=== PATIENT | male | born 1970 | race Caucasian/White ===

== ENCOUNTER 2018-04-21 15:58 | Inpatient (IN) | payer OTHER ==
[2018-04-21 16:59] VITALS: BMI 27.3
--- NOTE | 2018-04-21 17:58 | HP ---
CIWA Score Nausea/Vomitin-No Nausea/No Vomiting Muscle Tremors: 4-Moderate,w/Arms Extend Anxiety: 4-Mod. Anxious/Guarded Agitation: 4-Moderately Restless Paroxysmal Sweats: 4-Forehead w/Sweat Beads Orientation: 0-Oriented Tacttile Disturbances: 0-None Auditory Disturbances: 0-None Visual Disturbances: 0-None Headache: 0-None Present CIWA-Ar Total Score: 16 - Admission Criteria OAS Guidelines: Admission for Medically Managed Detox: Requires at least one of the followin. CIWA greater than 12 2. Seizures within the past 24 hours 3. Delirium tremens within the past 24 hours 4. Hallucinations within the past 24 hours 5. Acute intervention needed for co occurring medical disorder 6. Acute intervention needed for co occurring psychiatric disorder 7. Severe withdrawal that cannot be handled at a lower level of care (continued vomiting, continued diarrhea, abnormal vital signs) requiring intravenous medication and/or fluids 8. Patient presents the following: CIWA greater than 12, Acute intervention needed for co-occurring med or psych disorder Admission Criteria Met: Admission criteria met Admission ROS [facility] Chief Complaint: C/O WITHDRAWAL SX'S SEEKING ASSIST W/ DETOX Allergies/Adverse Reactions: Allergies Allergy/AdvReac Type Severity Reaction Status Date / Time Fish Containing Products Allergy Severe Verified 04/21/18 16:59 fish derived Allergy Severe Verified 04/21/18 16:59 History of Present Illness: 47 Y.O. MALE WITH HX/O ALCOHOL DEPENDENCE HERE FOR DETOX. CLIENT REPORTS HE ATTEMPTED SELF DETOX BUT HAD A WITHDRAWAL SEIZURE. HE WAS SEEN AND TREATED AT [facility] AND RELEASED FROM -04/15/2018 VERIFIED VIA DC PAPERS. HE IS SELF REFERRED. PRESENTS WITH ONGOING WITHDRAWAL, CIWA 16. REPORTS LAST ADMISSION HERE OVER 10 YEARS AGO. HIS LAST DETOX WAS AT [facility] A YEAR AGO. REPORTS LONGEST CLEAN TIME [id number]. DENIES ANY SIGNIFICANT CLEAN TIME SINCE. DENIES SI /HI, AVH, DRUG OVERDOSE. CURRENTLY LIVING WITH FAMILY, UNEMPLOYED, DENIES LEGALS. PMHX- WITHDRAWAL SEIZURES, HYPOGONADISM, PSYCH- ADHD, MDD, ANXIETY MEDS- PROZAC, ADDERALL, KLONOPIN Exam Limitations: No Limitations - Ebola screening Have you traveled outside of the country in the last 21 days: No Have you had contact with anyone from an Ebola affected area: No Have you been sick,other than usual withdrawal symptoms: No Do you have a fever: No - Review of Systems Constitutional: Changes in sleep EENT: reports: No Symptoms Reported Respiratory: reports: No Symptoms reported Cardiac: reports: No Symptoms Reported GI: reports: No Symptoms Reported : reports: No Symptoms Reported Musculoskeletal: reports: No Symptoms Reported Integumentary: reports: Flushing, Sweating Neuro: reports: Seizure (R/T WITHDRAWAL), Tremors (R/T WITHDRAWAL) Endocrine: reports: No Symptoms Reported Hematology: reports: No Symptoms Reported Psychiatric: reports: Anxious, Depressed Other Systems: Reviewed and Negative Patient History - Patient Medical History Hx Anemia: No Hx Asthma: No Hx Chronic Obstructive Pulmonary Disease (COPD): No Hx Cancer: No Hx Cardiac Disorders: No Hx Congestive Heart Failure: No Hx Hypertension: No Hx Hypercholesterolemia: No Hx Pacemaker: No HX Cerebrovascular Accident: No Hx Seizures: Yes (R/T WITHDRAWALS) Hx Dementia: No Hx Diabetes: No Hx Gastrointestinal Disorders: No Hx Liver Disease: No Hx Genitourinary Disorders: No Hx Sexually Transmitted Disorders: No Hx Renal Disease (ESRD): No Hx Thyroid Disease: No Hx Human Immunodeficiency Virus (HIV): No Hx Hepatitis C: No Hx Depression: Yes Hx Suicide Attempt: No Hx Bipolar Disorder: No Hx Schizophrenia: No Other Medical History: ADHD, HYPOGONADISM - Patient Surgical History Past Surgical History: No Hx Neurologic Surgery: No Hx Cataract Extraction: No Hx Cardiac Surgery: No Hx Lung Surgery: No Hx Breast Surgery: No Hx Breast Biopsy: No Hx Abdominal Surgery: No Hx Appendectomy: No Hx Cholecystectomy: No Hx Genitourinary Surgery: No Hx Section: No Hx Orthopedic Surgery: No Anesthesia Reaction: No - PPD History Previous Implant?: Yes Documented Results: Negative w/o proof Implanted On Prior [facility] Admission?: No PPD to be Administered?: Yes - Smoking Cessation Smoking history: Never smoked Have you smoked in the past 12 months: No Cigars Per Day: 0 Hx Chewing Tobacco Use: No Initiated information on smoking cessation: No - Substance & Tx. History Hx Alcohol Use: Yes Hx Substance Use: Yes Substance Use Type: Alcohol, Prescribed (KLONOPINS) Hx Substance Use Treatment: Yes ([facility]) - Substances Abused Alcohol Route: Oral Frequency: Daily Amount used: liquor- 2 pints, beer- 1 six pack Age of first use: 15 Date of Last Use: 04/20/18 Family Disease History - Family Disease History Family History: Denies Admission Physical Exam [facility] - Vital Signs Vital Signs: Vital Signs - 24 hr 04/21/18 16:56 Temperature 97.7 F Pulse Rate 74 Respiratory 18 Rate Blood Pressure 123/82 - Physical General Appearance: Yes: Appropriately Dressed, Mild Distress, Tremorous (FELT) , Sweating, Anxious HEENTM: Yes: EOMI, Normocephalic, Normal Voice, DEREK, Pharynx Normal Respiratory: Yes: Chest Non-Tender, Lungs Clear, Normal Breath Sounds, No Respiratory Distress, No Accessory Muscle Use Neck: Yes: No masses,lesions,Nodules, Supple, Trachea in good position Breast: Yes: Breast Exam Deferred Cardiology: Yes: Regular Rhythm, Regular Rate, S1, S2 Abdominal: Yes: Normal Bowel Sounds, Non Tender, Flat, Soft Genitourinary: Yes: Other (NO C/O OFFERED) Back: Yes: Normal Inspection Musculoskeletal: Yes: full range of Motion, Gait Steady Extremities: Yes: Normal Capillary Refill, Normal Range of Motion, Non-Tender, Tremors (FELT) Neurological: Yes: Fully Oriented, Alert, Motor Strength 5/5 Integumentary: Yes: Warm, Moist, Other (FLUSHED) Lymphatic: Yes: Within Normal Limits - Diagnostic (1) Alcohol dependence with uncomplicated withdrawal Current Visit: Yes Status: Acute (2) History of hypogonadism Current Visit: Yes Status: Chronic (3) ADHD Current Visit: Yes Status: Chronic Qualifiers: Attention deficit-hyperactivity disorder type: unspecified Qualified Code(s ): F90.9 - Attention-deficit hyperactivity disorder, unspecified type (4) MDD (major depressive disorder) Current Visit: Yes Status: Chronic Qualifiers: Major depression recurrence: recurrent Major depression episode severity: unspecified Cleared for Admission [facility] - Detox or Rehab [facility] Level of Care: Medically Managed Detox Regimen/Protocol: Librium Claeared for Rehab Admission: No [facility] Breath Alcohol Content Breath Alcohol Content: 0.030 Urine Drug Screen - Results Drug Screen Negative: Yes
[2018-04-21] MEDS ORDERED: ACETAMINOPHEN 325 MG TABLET (FP) PO PRN (18:10)
[2018-04-21] MEDS ORDERED: hydrOXYzine PAMOATE 50 MG CAPSULE (FP) PO PRN (18:10)
[2018-04-21] MEDS ORDERED: MAGNESIUM HYDROX 2400MG/30ML ORAL SUSPENSION 30 ML CUP PO PRN (18:10)
[2018-04-21] MEDS ORDERED: chlordiazePOXIDE HCL 25 MG CAPSULE PO PRN (18:10)
[2018-04-21] MEDS ORDERED: IBUPROFEN 400 MG TABLET (FP) PO PRN (18:10)
[2018-04-21] MEDS ORDERED: guaiFENesin/D-METHORPHAN HB 10 ML UNIT-DOSE CUPS PO PRN (18:10)
[2018-04-21] MEDS ORDERED: P-EPHED 60MG/TRIPROLIDI 2.5MG TABLET PO PRN (18:10)
[2018-04-21] MEDS ORDERED: MENTHOL/PHENOL 1 EACH UD MM PRN (18:10)
[2018-04-21] MEDS ORDERED: MAGNESIUM CITRATE 300 ML BOTTLE PO PRN (18:10)
[2018-04-21] MEDS ORDERED: MAG HYDROX/AL HYDROX/SIMETH 30 ML UNIT-DOSE CUP PO PRN (18:10)
[2018-04-21] MEDS ORDERED: LOPERAMIDE HCL 2 MG CAPSULE PO PRN (18:10)
[2018-04-21] MEDS: THIAMINE HCL 100 MG TABLET (FP) PO SCH (22:27)
[2018-04-21] MEDS: chlordiazePOXIDE HCL 25 MG CAPSULE PO SCH (22:27)
[2018-04-22] MEDS: chlordiazePOXIDE HCL 25 MG CAPSULE PO SCH ×4 (05:43→23:12)
[2018-04-22] MEDS: PRENATAL VITAMINS W/ FOLIC ACID TABLET (FP) PO SCH (10:30)
[2018-04-22 11:10] LABS: HEMATOCRIT 39.9 % (35.4-49); HEMOGLOBIN 13.3 GM/dL (11.7-16.9); MCH 28.8 pg (25.7-33.7); MCHC 33.4 g/dl (32.0-35.9); MEAN CELL VOLUME 86.4 fl (80-96); MEAN PLT VOLUME 8.1 fl (7.5-11.1); PLATELET COUNT 324 K/MM3 (134-434); RBC 4.62 M/mm3 (4.00-5.60); RDW 13.4 % (11.9-15.9); WHITE BLOOD COUNT 4.6 K/mm3 (4.0-10.0)
[2018-04-22 11:32] LABS: ALBUMIN 2.7 g/dl (3.4-5.0); ALK PHOS 53 U/L (45-117); ANION GAP 5 MMOL/L (8-16); BILIRUBIN,TOTAL 0.2 mg/dL (0.2-1); BLOOD UREA NITROGEN 17 mg/dL (7-18); CALCIUM 8.4 mg/dL (8.5-10.1); CHLORIDE 105 mmol/L (98-107); CO2 29 mmol/L (21-32); GLUCOSE,RANDOM 86 mg/dL (74-106); POTASSIUM 4.3 mmol/L (3.5-5.1); SGOT/AST 12 U/L (15-37); SGPT/ALT 21 U/L (13-61); SODIUM 139 mmol/L (136-145); TOT PROT 5.8 g/dl (6.4-8.2)
--- NOTE | 2018-04-22 12:37 | CONSULT ---
[facility] Psychiatric Consult - Data Date of interview: 04/22/18 Admission source: [facility] Identifying data: Readmission to [facility] for this 47 y/o male seeking detoxification treatment, on , for alcohol dependence. Patient is , no dependents, unemployed, homeless and supported on welfare. Substance Abuse History: Confirmed by patient in this interview. Details in current [facility] report : Smoking history: Never smoked. Have you smoked in the past 12 months: No. Cigars Per Day: 0. Hx Chewing Tobacco Use: No. Initiated information on smoking cessation: No. - Substance & Tx. History. Hx Alcohol Use: Yes. Hx Substance Use: Yes. Substance Use Type: Alcohol, Prescribed ( KLONOPINS). Hx Substance Use Treatment: Yes ([facility]). - Substances Abused. Alcohol. Route: Oral. Frequency: Daily. Amount used: liquor- 2 pints, beer- 1 six pack. Age of first use: 15. Date of Last Use: 04/20/18 Medical History: Recent history of withdrawal-related seizures (two weeks ago). Psychiatric History: Patient endorses a history of three psychiatric hospitalizations ([facility] Diagnosed with MDD, ADHD and Anxiety Disorder. Mr Dumont sees a private psychiatrist, in [facility], for medication management (adderall 20 mg/day + klonopin 1 mg/day + prozac 20 mg/day ). Onset of emotional disturbances dates back to eight years ago. Patient denies history of suicide attempts. Physical/Sexual Abuse/Trauma History: Patient denies. Additional Comment: Drug Screen is negative. Mental Status Exam - Mental Status Exam Alert and Oriented to: Time, Place, Person Cognitive Function: Good Patient Appearance: Unkempt, Disheveled Mood: Nervous, Anxious Affect: Mood Congruent, Constricted Patient Behavior: Fatigued, Cooperative Speech Pattern: Clear Voice Loudness: Normal Thought Process: Intact, Goal Oriented Thought Disorder: Not Present Hallucinations: Denies Suicidal Ideation: Denies Homicidal Ideation: Denies Insight/Judgement: Poor Sleep: Well Appetite: Good Muscle strength/Tone: Normal Gait/Station: Normal Psychiatric Findings - Problem List ([place] 1, 2,3) (1) Alcohol dependence with uncomplicated withdrawal Current Visit: Yes Status: Acute (2) ADHD Current Visit: Yes Status: Chronic Qualifiers: Attention deficit-hyperactivity disorder type: unspecified Qualified Code(s ): F90.9 - Attention-deficit hyperactivity disorder, unspecified type Comment: As per self-report. (3) MDD (major depressive disorder) Current Visit: Yes Status: Chronic Qualifiers: Major depression recurrence: recurrent Major depression episode severity: unspecified Comment: As per self-report. - Initial Treatment Plan Initial Treatment Plan: Psychoeducation. Sleep hygiene. Detoxification. AA meetings. Relapse prevention discussed with the patient. Prozac 20 mg po daily. Adderall held. Side effects/benefits of prozac are discussed with patient. Mr Dumont agrees to this careplan. Observation.
--- NOTE | 2018-04-22 13:29 | EKG ---
Test Reason : Blood Pressure : / mmHG Vent. Rate : 065 BPM Atrial Rate : 065 BPM P-R Int : 150 ms QRS Dur : 086 ms QT Int : 398 ms P-R-T Axes : 019 056 048 degrees QTc Int : 413 ms NORMAL SINUS RHYTHM NORMAL ECG NO PREVIOUS ECGS AVAILABLE Confirmed by NAKUL DE LA GARZA MD ([id number]) on 04/22/2018 1:28:35 PM Referred By: Confirmed By:NAKUL DE AL GARZA MD
--- NOTE | 2018-04-22 15:47 | PN ---
S CIWA - CIWA Score Nausea/Vomitin-No Nausea/No Vomiting Muscle Tremors: 4-Moderate,w/Arms Extend Anxiety: 3 Agitation: 2 Paroxysmal Sweats: 3 Orientation: 0-Oriented Tacttile Disturbances: 3-Moderate Itch/Numb/Burn Auditory Disturbances: 0-None Visual Disturbances: 1-Very Mild Sensitivity Headache: 0-None Present CIWA-Ar Total Score: 16 BHS Progress Note (SOAP) Subjective: Tremors, Sweating, Body Aches. Objective: PATIENT A & O X 3, OBSERVED AMBULATING ON UNIT. IN NO ACUTE DISTRESS. 04/22/18 15:46 Vital Signs Temperature 96.7 F L 04/22/18 14:12 Pulse Rate 78 04/22/18 14:12 Respiratory Rate 18 04/22/18 14:12 Blood Pressure 124/85 04/22/18 14:12 O2 Sat by Pulse Oximetry (%) Laboratory Tests 04/22/18 04/22/18 04/22/18 07:30 07:30 07:30 WBC 4.6 RBC 4.62 Hgb 13.3 Hct 39.9 MCV 86.4 MCH 28.8 MCHC 33.4 RDW 13.4 Plt Count 324 MPV 8.1 Sodium 139 Potassium 4.3 Chloride 105 Carbon Dioxide 29 Anion Gap 5 L BUN 17 Creatinine 1.0 Creat Clearance w eGFR > 60 Random Glucose 86 Calcium 8.4 L Total Bilirubin 0.2 AST 12 L ALT 21 Alkaline Phosphatase 53 Total Protein 5.8 L Albumin 2.7 L RPR Titer HIV 1&2 Antibody Screen Negative HIV P24 Antigen Negative 04/22/18 07:30 WBC RBC Hgb Hct MCV MCH MCHC RDW Plt Count MPV Sodium Potassium Chloride Carbon Dioxide Anion Gap BUN Creatinine Creat Clearance w eGFR Random Glucose Calcium Total Bilirubin AST ALT Alkaline Phosphatase Total Protein Albumin RPR Titer Nonreactive HIV 1&2 Antibody Screen HIV P24 Antigen LABS NOTED. Assessment: 04/22/18 15:46 WITHDRAWAL SYMPTOMS. Plan: CONTINUE DETOX.
[2018-04-22] MEDS: THIAMINE HCL 100 MG TABLET (FP) PO SCH (23:12)
[2018-04-23] MEDS: chlordiazePOXIDE HCL 25 MG CAPSULE PO SCH ×3 (05:29→17:24)
[2018-04-23] MEDS: PRENATAL VITAMINS W/ FOLIC ACID TABLET (FP) PO SCH (10:17)
[2018-04-23] MEDS: FLUoxetine HCL 20 MG CAPSULE (FP) PO SCH (10:18)
--- NOTE | 2018-04-23 14:30 | PN ---
[facility] CIWA - CIWA Score Nausea/Vomitin-Mild Nausea/No Vomiting Muscle Tremors: 3 Anxiety: 3 Agitation: 3 Paroxysmal Sweats: 3 Orientation: 0-Oriented Tacttile Disturbances: 1-Very Mild Itch/Numbness Auditory Disturbances: 0-None Visual Disturbances: 0-None Headache: 0-None Present CIWA-Ar Total Score: 14 S Progress Note (SOAP) Subjective: Chills, sweating, tremor Objective: 04/23/18 14:27 Last Vital Signs Temp Pulse Resp BP Pulse Ox 96.1 F L 73 18 123/71 04/23/18 13:20 04/23/18 13:20 04/23/18 13:20 04/23/18 13:20 Laboratory Tests 04/22/18 04/22/18 04/22/18 07:30 07:30 07:30 WBC 4.6 RBC 4.62 Hgb 13.3 Hct 39.9 MCV 86.4 MCH 28.8 MCHC 33.4 RDW 13.4 Plt Count 324 MPV 8.1 Sodium 139 Potassium 4.3 Chloride 105 Carbon Dioxide 29 Anion Gap 5 L BUN 17 Creatinine 1.0 Creat Clearance w eGFR > 60 Random Glucose 86 Calcium 8.4 L Total Bilirubin 0.2 AST 12 L ALT 21 Alkaline Phosphatase 53 Total Protein 5.8 L Albumin 2.7 L RPR Titer HIV 1&2 Antibody Screen Negative HIV P24 Antigen Negative 04/22/18 07:30 WBC RBC Hgb Hct MCV MCH MCHC RDW Plt Count MPV Sodium Potassium Chloride Carbon Dioxide Anion Gap BUN Creatinine Creat Clearance w eGFR Random Glucose Calcium Total Bilirubin AST ALT Alkaline Phosphatase Total Protein Albumin RPR Titer Nonreactive HIV 1&2 Antibody Screen HIV P24 Antigen Labs reviewed Assessment: 04/23/18 14:28 Withdrawal symptoms Plan: Continue detox Encouraged PO water intake
[2018-04-23] MEDS: THIAMINE HCL 100 MG TABLET (FP) PO SCH (22:25)
[2018-04-23] MEDS: chlordiazePOXIDE 5 MG CAPSULE PO SCH (22:25)
[2018-04-23] MEDS: MELATONIN 5 MG TABLETS PO PRN (22:25)
[2018-04-24] MEDS: chlordiazePOXIDE 5 MG CAPSULE PO SCH ×3 (07:10→16:52)
[2018-04-24] MEDS ORDERED: METHADONE HCL 10 MG TABLET PO SCH (07:30)
[2018-04-24] MEDS: FLUoxetine HCL 20 MG CAPSULE (FP) PO SCH (10:17)
[2018-04-24] MEDS: PRENATAL VITAMINS W/ FOLIC ACID TABLET (FP) PO SCH (10:17)
--- NOTE | 2018-04-24 10:55 | PN ---
BHS Progress Note (SOAP) Subjective: feeling better no tremor less sweat no gi distress Objective: 04/24/18 10:54 Vital Signs Temperature 97.6 F 04/24/18 09:22 Pulse Rate 66 04/24/18 09:22 Respiratory Rate 18 04/24/18 09:22 Blood Pressure 110/64 04/24/18 09:22 O2 Sat by Pulse Oximetry (%) Laboratory Laboratory Last Values WBC 4.6 K/mm3 (4.0-10.0) 04/22/18 07:30 RBC 4.62 M/mm3 (4.00-5.60) 04/22/18 07:30 Hgb 13.3 GM/dL (11.7-16.9) 04/22/18 07:30 Hct 39.9 % (35.4-49) 04/22/18 07:30 MCV 86.4 fl (80-96) 04/22/18 07:30 MCH 28.8 pg (25.7-33.7) 04/22/18 07:30 MCHC 33.4 g/dl (32.0-35.9) 04/22/18 07:30 RDW 13.4 % (11.9-15.9) 04/22/18 07:30 Plt Count 324 K/MM3 (134-434) 04/22/18 07:30 MPV 8.1 fl (7.5-11.1) 04/22/18 07:30 Sodium 139 mmol/L (136-145) 04/22/18 07:30 Potassium 4.3 mmol/L (3.5-5.1) 04/22/18 07:30 Chloride 105 mmol/L (98-107) 04/22/18 07:30 Carbon Dioxide 29 mmol/L (21-32) 04/22/18 07:30 Anion Gap 5 MMOL/L (8-16) L 04/22/18 07:30 BUN 17 mg/dL (7-18) 04/22/18 07:30 Creatinine 1.0 mg/dL (0.55-1.3) 04/22/18 07:30 Creat Clearance w eGFR > 60 (>60) 04/22/18 07:30 Random Glucose 86 mg/dL (74-106) 04/22/18 07:30 Calcium 8.4 mg/dL (8.5-10.1) L 04/22/18 07:30 Total Bilirubin 0.2 mg/dL (0.2-1) 04/22/18 07:30 AST 12 U/L (15-37) L 04/22/18 07:30 ALT 21 U/L (13-61) 04/22/18 07:30 Alkaline Phosphatase 53 U/L (45-117) 04/22/18 07:30 Total Protein 5.8 g/dl (6.4-8.2) L 04/22/18 07:30 Albumin 2.7 g/dl (3.4-5.0) L 04/22/18 07:30 RPR Titer Nonreactive (NONREACTIVE) 04/22/18 07:30 HIV 1&2 Antibody Screen Negative 04/22/18 07:30 HIV P24 Antigen Negative 04/22/18 07:30 lab noted Assessment: 04/24/18 10:55 mild withdrawal sx Plan: medically supervised detox
[2018-04-24] MEDS: THIAMINE HCL 100 MG TABLET (FP) PO SCH (22:23)
[2018-04-24] MEDS: chlordiazePOXIDE HCL 10 MG CAPSULE PO SCH (22:23)
[2018-04-24] MEDS: MELATONIN 5 MG TABLETS PO PRN (22:24)
[2018-04-25] MEDS: chlordiazePOXIDE HCL 10 MG CAPSULE PO SCH ×2 (05:29→10:15)
[2018-04-25 09:42] VITALS: BP 123/93; PULSE 85; TEMP 98.4
[2018-04-25] MEDS: PRENATAL VITAMINS W/ FOLIC ACID TABLET (FP) PO SCH (10:15)
[2018-04-25] MEDS: FLUoxetine HCL 20 MG CAPSULE (FP) PO SCH (10:15)
--- NOTE | 2018-04-25 15:35 | DS ---
[facility] Detox Discharge Summary Admission Date: 04/21/18 Discharge Date: 04/25/18 - History Present History: Alcohol Dependence Additional Comments: PATIENT GOING TO [facility] ([place], [place]) IN APPROX. 1 WEEK WHEN A BED IS AVAILABLE. PATIENT WILL GO TO LOCAL [facility]IS [facility] IN THE MEANTIME (PATIENT WISHES TO FIND ONE ON HIS OWN TO GO TO). PATIENT WAS DISCHARGED FROM DETOX UNIT IN STABLE MEDICAL CONDITION. Pertinent Past History: History of Seizures (Due To Withdrawal), History of Hypogonadism, History of Attention Deficit Hyperactivity Disorder, Major Depressive Disorder. - Physical Exam Results Vital Signs: Vital Signs Temperature 98.4 F 04/25/18 09:41 Pulse Rate 85 04/25/18 09:41 Respiratory Rate 18 04/25/18 09:41 Blood Pressure 123/93 04/25/18 09:41 O2 Sat by Pulse Oximetry (%) Pertinent Admission Physical Exam Findings: WITHDRAWAL SYMPTOMS. Laboratory Tests 04/22/18 04/22/18 04/22/18 07:30 07:30 07:30 WBC 4.6 RBC 4.62 Hgb 13.3 Hct 39.9 MCV 86.4 MCH 28.8 MCHC 33.4 RDW 13.4 Plt Count 324 MPV 8.1 Sodium 139 Potassium 4.3 Chloride 105 Carbon Dioxide 29 Anion Gap 5 L BUN 17 Creatinine 1.0 Creat Clearance w eGFR > 60 Random Glucose 86 Calcium 8.4 L Total Bilirubin 0.2 AST 12 L ALT 21 Alkaline Phosphatase 53 Total Protein 5.8 L Albumin 2.7 L RPR Titer HIV 1&2 Antibody Screen Negative HIV P24 Antigen Negative 04/22/18 07:30 WBC RBC Hgb Hct MCV MCH MCHC RDW Plt Count MPV Sodium Potassium Chloride Carbon Dioxide Anion Gap BUN Creatinine Creat Clearance w eGFR Random Glucose Calcium Total Bilirubin AST ALT Alkaline Phosphatase Total Protein Albumin RPR Titer Nonreactive HIV 1&2 Antibody Screen HIV P24 Antigen LABS NOTED. - Treatment Hospital Course: Detox Protocol Followed, Detoxed Safely, Responded well, Discharged Condition Good, Rehab Referral Accepted Patient has Accepted a Rehab Referral to: [facility] ([place], [place]). - Medication Discharge Medications: Ambulatory Orders Dextroamphetamine/Amphetamine [Adderall Xr 20 mg Capsule] 20 mg PO DAILY Fluoxetine HCl [Prozac -] 20 mg PO DAILY 04/21/18 clonazePAM [Klonopin -] 1 mg PO DAILY 04/21/18 - Diagnosis (1) Alcohol dependence with uncomplicated withdrawal Status: Acute (2) ADHD Status: Chronic Qualifiers: Attention deficit-hyperactivity disorder type: unspecified Qualified Code(s ): F90.9 - Attention-deficit hyperactivity disorder, unspecified type (3) History of hypogonadism Status: Chronic (4) MDD (major depressive disorder) Status: Chronic Qualifiers: Major depression recurrence: unspecified whether recurrent Active/ Remission status: remission status unspecified Qualified Code(s): F32.9 - Major depressive disorder, single episode, unspecified - AMA Did Patient Leave Against Medical Advice: No
== END 2018-04-25 12:30 | disposition home or self-care (01) | DRG 775 ==
LOC: YASAS 15:58 → Y3N 19:01
PROC: HZ2ZZZZ Detoxification Services for Substance Abuse Treatment (ICD-10-PCS; principal; 2018-04-21)
DX: F10.230 Alcohol dependence with withdrawal, uncomplicated (principal); F90.9 Attention-deficit hyperactivity disorder, unspecified type; F33.9 Major depressive disorder, recurrent, unspecified; Z91.013 Allergy to seafood; Z86.69 Personal history of other diseases of the nervous system and sense organs; Z87.438 Personal history of other diseases of male genital organs
CPT/HCPCS: 36415; 80053; 85027; 86593; 87389; 93005; 93010